=== PATIENT | female | born 1990 | race Caucasian/White ===

== ENCOUNTER 2016-11-16 10:08 | Emergency (ER) | payer OTHER ==
[~2016-11-16] VITALS: Ht 160 cm; Wt 95.8 kg
[~2016-11-16 10:08] MED LIST: ENDOCET 5-3251 EACH PO; IBUPROFEN800 MG PO; MOTRIN800 MG PO; ORTHO TRI-CYCL1 EACH PO; PRENATAL TABLE1 EACH PO; TAMIFLU75 MG PO; TYLENOL EXTRA500 MG PO
[2016-11-16 12:07] VITALS: BP 140/105
[2016-11-16] MEDS ORDERED: FLEXERIL10 MG PO (12:53)
[2016-11-16] MEDS ORDERED: PREDNISONE20 MG PO (12:53)
[2016-11-16] MEDS ORDERED: MOTRIN800 MG PO (12:53)
== END 2016-11-16 13:18 | disposition home or self-care (01) ==
LOC: EME 10:08
DX: M54.5 Low back pain (principal); Z87.891 Personal history of nicotine dependence
CPT/HCPCS: 72100; 99281; 99283; J7512